=== PATIENT | male | born 1940 | race Hispanic/Latino ===

== ENCOUNTER 2021-03-18 09:42 | Outpatient (CLI) | payer MEDICARE ==
[2021-03-18] MEDS ORDERED: Magnevist 469MG/ML 20 ML VIAL ONE (14:19)
== END 2021-03-18 09:43 | disposition home or self-care (01) ==
LOC: MRI 09:42
PROVIDERS: ATTEND Family Medicine
DX: R90.89 Other abnormal findings on diagnostic imaging of central nervous system (principal); R22.0 Localized swelling, mass and lump, head; I67.89 Other cerebrovascular disease
CPT/HCPCS: 70553; A9579

== ENCOUNTER 2021-08-05 10:06 | Outpatient (CLI) | payer OTHER | END 2021-08-05 10:07 | disposition home or self-care (01) | LOC: MRI 10:06 | PROVIDERS: ATTEND Neurological Surgery | DX: C71.9 Malignant neoplasm of brain, unspecified (principal); G93.9 Disorder of brain, unspecified | CPT/HCPCS: 70553 ==

== ENCOUNTER 2022-02-03 10:42 | Outpatient (CLI) | payer OTHER ==
[2022-02-03] MEDS ORDERED: Magnevist 469MG/ML 20 ML VIAL ONE (14:44)
== END 2022-02-03 10:43 | disposition home or self-care (01) ==
LOC: MRI 10:42
PROVIDERS: ATTEND Neurological Surgery
DX: D49.6 Neoplasm of unspecified behavior of brain (principal); J34.1 Cyst and mucocele of nose and nasal sinus
CPT/HCPCS: 70553; 82565; A9579

== ENCOUNTER 2023-02-23 12:22 | Outpatient (CLI) | payer OTHER | END 2023-02-23 12:23 | disposition home or self-care (01) | LOC: MRI 12:22 | PROVIDERS: ATTEND Neurological Surgery | DX: C71.9 Malignant neoplasm of brain, unspecified (principal); G93.89 Other specified disorders of brain | CPT/HCPCS: 70553 ==

== ENCOUNTER 2023-10-18 11:22 | Outpatient (CLI) | payer OTHER ==
[2023-10-18 12:37] LABS: #Basophils 0.04 10x3/uL (0.0-0.2); #Eosinphils 0.14 10x3/uL (0.0-0.5); #Monocytes 0.59 10x3/uL (0.0-1.1); #Neutrophils 5.39 10x3/uL (1.5-8.4); %Basophils 0.5 % (0.0-2.0); %Eosinophils 1.7 % (0.0-6.0); %Monocytes 7.3 % (0.0-10.0); %Neutrophils 66.3 % (40.0-75.0); Hematocrit 47.4 % (38.8-50.0); Hemoglobin 16.2 g/dL (13.5-17.5); Mean Corpuscular HGB CONC 34.2 g/dL (32.0-36.0); Mean Corpuscular Hemoglobin 31.5 pg (27.0-33.0); Mean Platelet Volume 11.8 fL (7.4-10.4); Platelet Count 250 10x3/uL (150-450); RBC Distribution Width 12.5 % (11.5-14.5); Red Blood Cell (RBC) Count 5.15 10x6/uL (4.32-5.72); White Blood Cell (WBC) Count 8.1 10x3/uL (3.5-10.5)
[2023-10-18 13:05] LABS: ALT (SGPT) 11 U/L (8-55); AST (SGOT) 21 U/L (5-34); Albumin 4.2 g/dL (3.4-4.8); Alkaline Phosphatase 84 U/L (40-110); Anion Gap 14 mmol/L (10-20); BUN (Urea Nitrogen) 15 mg/dL (8.4-25.7); Bilirubin, Direct 0.2 mg/dL (0.1-0.3); Bilirubin, Total 0.7 mg/dL (0.2-1.2); Calc. Creatinine Clearance 0 mL/min (70-130); Calcium 9.6 mg/dL (7.8-10.44); Carbon Dioxide 25 mmol/L (23-31); Chloride 105 mmol/L (98-107); Estimated GFR 58; Globulin 2.9 g/dL (2.4-3.5); Glucose 144 mg/dL (83-110); Potassium 4.3 mmol/L (3.5-5.1); Protein, Total 7.1 g/dL (5.8-8.1); Sodium 140 mmol/L (136-145)
== END 2023-10-18 11:23 | disposition home or self-care (01) ==
LOC: LABBT 11:22
PROVIDERS: ATTEND Internal Medicine Cardiovascular Disease
DX: Z01.812 Encounter for preprocedural laboratory examination (principal)
CPT/HCPCS: 80053; 80076; 85025

== ENCOUNTER 2023-10-21 07:13 | Inpatient (IN) | payer OTHER ==
[2023-10-21] MEDS ORDERED: fentaNYL 50 mcg/mL 1 mL Vial ONE (07:57)
[2023-10-21] MEDS ORDERED: Heparin 10,000 UNITS/ 10 ML VIAL ONE (07:58)
[2023-10-21] MEDS ORDERED: Midazolam HCl 2 mg/2 ml Vial ONE (07:58)
[2023-10-21] MEDS ORDERED: Nitroglycerin 50 MG/250 ML BOT 250 ML ONE (07:58)
[2023-10-21] MEDS ORDERED: Lidocaine 1% (PF) 30 ML VIAL ONE (07:58)
[2023-10-21] MEDS ORDERED: Verapamil 5 MG/2 ML VIAL ONE (08:19)
[2023-10-21 08:23] LABS: Cardiac Risk 5.3 (Less than 4.5)
[2023-10-21] MEDS ORDERED: Atropine Sulfate 1 mg/10 ml Syringe ONE ×2 (09:01→09:50)
[2023-10-21] MEDS ORDERED: Atropine Sulfate 1 mg/1 ml Vial ONE (09:01)
[2023-10-21] MEDS ORDERED: EPINEPHrine 1 MG/10 ML Abboject SYRINGE ONE (09:02)
[2023-10-21] MEDS ORDERED: TICAGRELOR 90 MG TABLET ONE (09:17)
[2023-10-21] MEDS ORDERED: Iopamidol 370 76% 100 ML VIAL ONE (09:45)
[2023-10-21 19:23] VITALS: BMI 22.0
[2023-10-21] MEDS: TICAGRELOR 90 MG TABLET PO SCH (21:07)
[2023-10-21] MEDS: Rosuvastatin 20 MG TAB PO SCH (21:07)
[2023-10-21] MEDS: Memantine 10 MG TAB PO SCH (21:07)
[2023-10-21] MEDS: Donepezil HCl 5 MG TAB PO SCH (21:07)
[2023-10-22] MEDS: Aspirin 81 mg Enteric Coated Tablet PO SCH (09:18)
[2023-10-22] MEDS: Clopidogrel Bisulfate 75 MG TAB PO SCH (09:18)
[2023-10-22] MEDS: Sodium Chloride 0.9% 1,000 ML IV SCH (16:42)
[2023-10-23] MEDS: ALPRAZolam 0.25 MG TAB PO PRN (17:37)
[2023-10-24 04:54] LABS: #Basophils 0.03 10x3/uL (0.0-0.2); %Basophils 0.4 % (0.0-1.0); %Eosinophils 2.2 % (0.0-10.0); %Lymphocytes 10.8 % (21.0-51.0); %Monocytes 8.6 % (0.0-10.0); %Neutrophils 77.5 % (42.0-75.0); Hematocrit 41.9 % (42.0-52.0); Mean Corpuscular HGB CONC 33.4 g/dL (32.0-36.0); Mean Corpuscular Hemoglobin 30.8 pg (27.0-31.0); Mean Corpuscular Volume 92.3 fL (78.0-98.0); Mean Platelet Volume 11.3 fL (7.4-10.4); Platelet Count 214 10x3/uL (130-400); RBC Distribution Width 13.4 % (11.5-14.5); Red Blood Cell (RBC) Count 4.54 mill/uL (4.70-6.10)
[2023-10-24 05:06] LABS: Prothrombin Time 12.7 sec (12.0-14.7)
[2023-10-24 05:07] LABS: PTT 34.9 sec (22.9-36.1)
[2023-10-24 05:33] LABS: Anion Gap 16 mmol/L (10-20); BUN (Urea Nitrogen) 11 mg/dL (8.4-25.7); Calc. Creatinine Clearance 51 mL/min (70-130); Carbon Dioxide 19 mmol/L (23-31); Chloride 108 mmol/L (98-107); Estimated GFR 79; Glucose 107 mg/dL (83-110); Potassium 3.3 mmol/L (3.5-5.1); Sodium 140 mmol/L (136-145)
[2023-10-24] MEDS: Potassium Chloride 20 MEQ TAB PO SCH (16:41)
[2023-10-25] MEDS ORDERED: Gentamicin 80 MG/2 ML VIAL ONE (06:21)
[2023-10-25] MEDS ORDERED: CEFAZOLIN 2 GM VIAL ONE ×2 (06:22→06:55)
[2023-10-25] MEDS ORDERED: CEFAZOLIN 1 GM VIAL ONE (06:22)
[2023-10-25] MEDS ORDERED: Lidocaine 1% (PF) 30 ML VIAL ONE (06:29)
[2023-10-25 10:05] LABS: ALT (SGPT) 106 U/L (8-55); AST (SGOT) 93 U/L (5-34); Albumin 3.1 g/dL (3.4-4.8); Alkaline Phosphatase 247 U/L (40-110); Anion Gap 14 mmol/L (10-20); BUN (Urea Nitrogen) 17 mg/dL (8.4-25.7); Bilirubin, Total 1.5 mg/dL (0.2-1.2); Calc. Creatinine Clearance 56 mL/min (70-130); Calcium 8.5 mg/dL (7.8-10.44); Carbon Dioxide 21 mmol/L (23-31); Chloride 111 mmol/L (98-107); Estimated GFR 85; Globulin 2.8 g/dL (2.4-3.5); Glucose 119 mg/dL (83-110); Potassium 3.6 mmol/L (3.5-5.1); Protein, Total 5.9 g/dL (5.8-8.1); Sodium 142 mmol/L (136-145)
[2023-10-25] MEDS: Donepezil HCl 10 MG TAB PO SCH (21:47)
[2023-10-25] MEDS: Memantine 10 MG TAB PO SCH (21:47)
[2023-10-26 07:23] LABS: #Basophils Less than 0.03 10x3/uL (0.0-0.2); %Basophils 0.3 % (0.0-1.0); %Eosinophils 2.9 % (0.0-10.0); %Lymphocytes 17.9 % (21.0-51.0); %Monocytes 9.3 % (0.0-10.0); %Neutrophils 69.3 % (42.0-75.0); Hematocrit 37.6 % (42.0-52.0); Hemoglobin 12.7 g/dL (14.0-18.0); Mean Corpuscular HGB CONC 33.8 g/dL (32.0-36.0); Mean Corpuscular Hemoglobin 31.1 pg (27.0-31.0); Mean Corpuscular Volume 92.2 fL (78.0-98.0); Mean Platelet Volume 11.2 fL (7.4-10.4); Platelet Count 181 10x3/uL (130-400); RBC Distribution Width 13.3 % (11.5-14.5); Red Blood Cell (RBC) Count 4.08 mill/uL (4.70-6.10)
[2023-10-26 07:52] LABS: ALT (SGPT) 94 U/L (8-55); AST (SGOT) 84 U/L (5-34); Albumin 2.8 g/dL (3.4-4.8); Alkaline Phosphatase 240 U/L (40-110); Anion Gap 11 mmol/L (10-20); BUN (Urea Nitrogen) 11 mg/dL (8.4-25.7); Bilirubin, Total 1.2 mg/dL (0.2-1.2); Calc. Creatinine Clearance 63 mL/min (70-130); Calcium 8.3 mg/dL (7.8-10.44); Carbon Dioxide 19 mmol/L (23-31); Chloride 112 mmol/L (98-107); Estimated GFR 88; Globulin 2.7 g/dL (2.4-3.5); Glucose 100 mg/dL (83-110); Potassium 3.5 mmol/L (3.5-5.1); Protein, Total 5.5 g/dL (5.8-8.1); Sodium 138 mmol/L (136-145)
[2023-10-26 12:51] LABS: HBCM Index 0.07 S/CO (0-0.79); HBsAg Index 0.28 S/CO (0-0.99); Hep A IgM AB NONREACTIVE (NonReactive); Hep A IgM S/CO 0.25 S/CO (0-0.79); Hep B Surf Ag NONREACTIVE S/CO (NonReactive); Hep C IgG Ab NONREACTIVE S/CO (NonReactive); Hep C Index 0.07 S/CO (0-0.79); Hepatitis B Core IgM Abs NONREACTIVE S/CO (NonReactive)
[2023-10-27 11:33] LABS: ALT (SGPT) 122 U/L (8-55); AST (SGOT) 104 U/L (5-34); Albumin 2.9 g/dL (3.4-4.8); Alkaline Phosphatase 276 U/L (40-110); Bilirubin, Direct 0.6 mg/dL (0.1-0.3); Bilirubin, Total 1.1 mg/dL (0.2-1.2); Protein, Total 5.8 g/dL (5.8-8.1)
[2023-10-28 11:45] VITALS: BMI 21.6
[2023-10-28 14:27] LABS: EliA Vaculitis New Method **** NEW METHOD ****; Mitochondrial Ab 0.8 U/mL (<4 Negative)
[2023-10-28 15:14] LABS: ALT (SGPT) 162 U/L (8-55); AST (SGOT) 130 U/L (5-34); Albumin 3.1 g/dL (3.4-4.8); Alkaline Phosphatase 283 U/L (40-110); Bilirubin, Direct 0.5 mg/dL (0.1-0.3); Protein, Total 6.1 g/dL (5.8-8.1)
[2023-10-29 05:07] LABS: Prothrombin Time 12.6 sec (12.0-14.7)
[2023-10-29 05:16] LABS: ALT (SGPT) 165 U/L (8-55); AST (SGOT) 130 U/L (5-34); Albumin 2.9 g/dL (3.4-4.8); Alkaline Phosphatase 244 U/L (40-110); Anion Gap 15 mmol/L (10-20); BUN (Urea Nitrogen) 14 mg/dL (8.4-25.7); Bilirubin, Total 1.1 mg/dL (0.2-1.2); Calc. Creatinine Clearance 64 mL/min (70-130); Calcium 8.8 mg/dL (7.8-10.44); Carbon Dioxide 21 mmol/L (23-31); Chloride 107 mmol/L (98-107); Estimated GFR 89; Globulin 2.9 g/dL (2.4-3.5); Glucose 100 mg/dL (83-110); Iron 85 ug/dL (65-175); Iron Binding Capacity, Total 264 mcg/dL (261-462); Potassium 3.4 mmol/L (3.5-5.1); Protein, Total 5.8 g/dL (5.8-8.1); Sodium 140 mmol/L (136-145)
[2023-10-29] MEDS: Potassium Chloride 20 MEQ TAB PO SCH (11:50)
[2023-10-29 14:06] VITALS: BP 130/78; TEMP 98
[2023-10-31 10:38] LABS: Alpha-1-Antitrypsin 198 mg/dL (101-187)
[2023-11-01 14:14] LABS: Smooth Muscle Total ABS <1 Units (0-19)
== END 2023-10-29 15:01 | disposition home or self-care (01) | DRG 244 ==
LOC: CCL 07:13 → 2NO 11:02
PROVIDERS: ADMIT Internal Medicine Cardiovascular Disease; ATTEND Family Medicine
PROC: 4A023N7 Measurement of Cardiac Sampling and Pressure, Left Heart, Percutaneous Approach (ICD-10-PCS; principal; 2023-10-21)
PROC: 027135Z Dilation of Coronary Artery, Two Arteries with Two Drug-eluting Intraluminal Devices, Percutaneous Approach (ICD-10-PCS; 2023-10-21)
PROC: B2151ZZ Fluoroscopy of Left Heart using Low Osmolar Contrast (ICD-10-PCS; 2023-10-21)
PROC: B2111ZZ Fluoroscopy of Multiple Coronary Arteries using Low Osmolar Contrast (ICD-10-PCS; 2023-10-21)
PROC: 0JH606Z Insertion of Pacemaker, Dual Chamber into Chest Subcutaneous Tissue and Fascia, Open Approach (ICD-10-PCS; 2023-10-25)
PROC: 02H63JZ Insertion of Pacemaker Lead into Right Atrium, Percutaneous Approach (ICD-10-PCS; 2023-10-25)
PROC: 02HK3JZ Insertion of Pacemaker Lead into Right Ventricle, Percutaneous Approach (ICD-10-PCS; 2023-10-25)
DX: I44.2 Atrioventricular block, complete (principal); I25.10 Atherosclerotic heart disease of native coronary artery without angina pectoris; Z79.82 Long term (current) use of aspirin; Z79.899 Other long term (current) drug therapy; I35.1 Nonrheumatic aortic (valve) insufficiency; E11.9 Type 2 diabetes mellitus without complications; Z98.49 Cataract extraction status, unspecified eye; F03.90 Unspecified dementia, unspecified severity, without behavioral disturbance, psychotic disturbance, mood disturbance, and anxiety; E87.6 Hypokalemia
CPT/HCPCS: 33208; 33249; 36415; 36416; 71045; 76705; 80048; 80053; 80061; 80074; 80076; 82103; 82977; 83516; 83540; 83550; 83735; 85025; 85347; 85610; 85730; 86015; 92928; 92929; 93005; 93458; 93798; 99152; 99153; C1769; C1785; C1874; C1887; C1894; C1898; C9600; C9601; J0171; J0461; J0690; J1580; J1644; J2001; J2250; J3010; J7050; Q9967